=== PATIENT | male | born 1950 | race Caucasian/White ===

== ENCOUNTER 2020-10-03 03:41 | Emergency (ER) | payer BC ==
[~2020-10-03] VITALS: Ht 180.3 cm; Wt 83.9 kg
[2020-10-03 05:43] VITALS: BP 183/82
== END 2020-10-03 05:44 | disposition home or self-care (01) ==
LOC: ER 03:41
DX: S46.211A Strain of muscle, fascia and tendon of other parts of biceps, right arm, initial encounter (principal); E11.9 Type 2 diabetes mellitus without complications; Z88.0 Allergy status to penicillin; X50.0XXA Overexertion from strenuous movement or load, initial encounter; X50.9XXA Other and unspecified overexertion or strenuous movements or postures, initial encounter; Y93.89 Activity, other specified; Y92.89 Other specified places as the place of occurrence of the external cause; Y99.8 Other external cause status